=== PATIENT | female | born 1960 | race American Indian/Alaskan Native ===

== ENCOUNTER 2016-10-30 21:40 | Emergency (ER) | payer SELFPAY ==
[2016-10-30 22:22] VITALS: BP 160/108
--- NOTE | 2016-11-01 13:43 | ED Elopement Review ---
ED Pt Elopement review - Results review Lab results: Laboratory Tests 10/30/16 22:08 POC Glucose 95 - Call Back decision Pt Call Back Decision: No action required
== END 2016-10-30 22:15 | disposition left against medical advice (07) ==
LOC: ED 21:40
DX: R73.9 Hyperglycemia, unspecified (principal); Z53.21 Procedure and treatment not carried out due to patient leaving prior to being seen by health care provider
CPT/HCPCS: 82962

== ENCOUNTER 2017-03-27 20:07 | Emergency (ER) | payer MEDICARE ==
--- NOTE | 2017-03-27 22:27 | XRay Report ---
FINAL REPORT EXAM: XR HIP 2-3V RT HISTORY: RIGHT HIP PAIN TECHNIQUE: Right hip and AP pelvis PRIORS: None. FINDINGS: No fracture identified. No dislocation seen. Femoral head maintains a normal contour. Joint spaces within normal limits. Adjacent bony pelvis is unremarkable IMPRESSION: Negative hip series
--- NOTE | 2017-03-27 22:31 | XRay Report ---
FINAL REPORT EXAM: XR FOOT 2V RT HISTORY: RIGHT FOOT PAIN TECHNIQUE: 2 views right foot PRIORS: None. FINDINGS: No fracture or dislocation identified. Joint spaces are within normal limits. No radiopaque foreign body seen. No soft tissue abnormality identified. IMPRESSION: Negative foot series
--- NOTE | 2017-03-27 22:32 | XRay Report ---
FINAL REPORT EXAM: XR ANKLE 2V RT HISTORY: RIGHT ANKLE PAIN TECHNIQUE: 2 views right ankle PRIORS: None. FINDINGS: No fracture is identified. No dislocation seen. Ankle mortise is intact no evidence of joint space widening. No erosive or degenerative changes are identified. No evidence of joint effusion. IMPRESSION: Negative ankle series
[2017-03-27] MEDS ORDERED: MOTRIN PO ONE (23:46)
--- NOTE | 2017-03-27 23:50 | Emergency Department Report ---
ED Lower Extremity HPI - General Chief Complaint: Extremity Injury, Lower Stated Complaint: FOOT PAIN Time Seen by Provider: 03/27/17 23:36 Source: patient Mode of arrival: Wheelchair Limitations: No Limitations - History of Present Illness Initial Comments: This is a 56-year-old female nontoxic, well nourished in appearance, no acute signs of distress deficit ED complaining of right ankle, foot, and hip pain status post fall that occurred yesterday. Patient stated she was walking down the hill when she twisted her ankle and landed on her right sided buttock/hip region. Patient denies any head trauma. Denies loss of consciousness. Denies headache, chest pain, shortness of breath, numbness, tingling, fever, chills, nausea or vomiting. Patient states allergies to penicillin. Patient denies any decreased range of motion or abnormal gait. She stated she follows up with her primary care doctor for her hypertension and states she takes amlodipine and clonidine. MD Complaint: hip injury, ankle injury, foot injury -: Gradual, days(s) (1) Type of Injury: inversion Place: street/outdoors Severity: mild Severity scale (0 -10): 7 Improves With: nothing Worsens With: movement Associated Symptoms: swelling, ambulatory. denies: snap/pop sensation, numbness , tingling, unable to bear weight, able to partially bear weight - Related Data Home Medications Medication Instructions Recorded Confirmed Last Taken Clonidine HCl [Kapvay] 0.1 mg PO BID 04/26/13 08/06/14 04/26/13 Potassium Chloride [K-Dur] 10 meq PO QDAY 04/26/13 08/06/14 04/26/13 metFORMIN [Glucophage] 500 mg PO BID 04/26/13 08/06/14 04/26/13 Naproxen [Naprosyn TAB] 500 mg PO BID PRN 07/10/13 08/06/14 Unknown Previous Rx's Medication Instructions Recorded Last Taken Type Cyclobenzaprine [Flexeril 10 MG 5 mg PO TID PRN #30 tablet 04/27/13 Unknown Rx TAB] Citalopram [Celexa] 40 mg PO QDAY #30 tablet 07/15/13 Unknown Rx Doxepin [SINEquan] 25 mg PO QHS #30 capsule 07/15/13 Unknown Rx Triamter/Hctz 75-50 mg [Maxzide 1 tab PO QDAY #30 tablet 08/07/14 Unknown Rx 75-50 mg] Ibuprofen [Motrin 600 MG tab] 600 mg PO Q8H PRN #30 tablet 03/27/17 Unknown Rx Allergies Allergy/AdvReac Type Severity Reaction Status Date / Time Penicillins Allergy Swelling Verified 04/26/13 23:26 ED Review of Systems ROS: Stated complaint: FOOT PAIN Other details as noted in HPI Constitutional: denies: chills, fever Eyes: denies: eye pain, eye discharge, vision change ENT: denies: ear pain, throat pain Respiratory: denies: cough, shortness of breath, wheezing Cardiovascular: denies: chest pain, palpitations Endocrine: no symptoms reported Gastrointestinal: denies: abdominal pain, nausea, diarrhea Genitourinary: denies: urgency, dysuria, discharge Musculoskeletal: denies: back pain, joint swelling, arthralgia Skin: denies: rash, lesions Neurological: denies: headache, weakness, paresthesias Psychiatric: denies: anxiety, depression Hematological/Lymphatic: denies: easy bleeding, easy bruising ED Past Medical Hx - Past Medical History Previous Medical History?: Yes Hx Hypertension: Yes Hx CVA: Yes (2011 at [place]) Hx Congestive Heart Failure: No Hx Diabetes: Yes Hx Psychiatric Treatment: Yes (Depression) Hx Asthma: Yes Hx COPD: No Additional medical history: LEFT SIDE PARALYSIS, NEUROPATHY, HERNIATED DEGENERATIVE DISC DZ - Surgical History Past Surgical History?: Yes Additional Surgical History: HYSTERECTOMY, LAP BAND, NONMALIGNANT MASS REMOVED FROM FOREHEAD. Patient had a gastric prolapse that was repaired. - Social History Smoking Status: Never Smoker Substance Use Type: None - Medications Home Medications: Home Medications Medication Instructions Recorded Confirmed Last Taken Type Clonidine HCl [Kapvay] 0.1 mg PO BID 04/26/13 08/06/14 04/26/13 History Potassium Chloride [K-Dur] 10 meq PO QDAY 04/26/13 08/06/14 04/26/13 History metFORMIN [Glucophage] 500 mg PO BID 04/26/13 08/06/14 04/26/13 History Cyclobenzaprine [Flexeril 10 MG 5 mg PO TID PRN #30 tablet 04/27/13 08/06/14 Unknown Rx TAB] Naproxen [Naprosyn TAB] 500 mg PO BID PRN 07/10/13 08/06/14 Unknown History Citalopram [Celexa] 40 mg PO QDAY #30 tablet 07/15/13 08/06/14 Unknown Rx Doxepin [SINEquan] 25 mg PO QHS #30 capsule 07/15/13 08/06/14 Unknown Rx Triamter/Hctz 75-50 mg [Maxzide 1 tab PO QDAY #30 tablet 08/07/14 Unknown Rx 75-50 mg] Ibuprofen [Motrin 600 MG tab] 600 mg PO Q8H PRN #30 tablet 03/27/17 Unknown Rx ED Physical Exam - General Limitations: No Limitations General appearance: alert, in no apparent distress - Head Head exam: Present: atraumatic, normocephalic, normal inspection - Eye Eye exam: Present: normal appearance, PERRL, EOMI. Absent: scleral icterus, conjunctival injection, nystagmus, periorbital swelling, periorbital tenderness Pupils: Present: normal accommodation - ENT ENT exam: Present: normal exam, normal orophraynx, mucous membranes moist, TM's normal bilaterally, normal external ear exam - Neck Neck exam: Present: normal inspection, full ROM. Absent: tenderness, meningismus, lymphadenopathy, thyromegaly - Respiratory Respiratory exam: Present: normal lung sounds bilaterally. Absent: respiratory distress, wheezes, rales, rhonchi, stridor, chest wall tenderness, accessory muscle use, decreased breath sounds, prolonged expiratory - Cardiovascular Cardiovascular Exam: Present: regular rate, normal rhythm, normal heart sounds. Absent: bradycardia, tachycardia, irregular rhythm, systolic murmur, diastolic murmur, rubs, gallop - GI/Abdominal GI/Abdominal exam: Present: soft, normal bowel sounds. Absent: distended, tenderness, guarding, rebound, rigid, diminished bowel sounds - Rectal Rectal exam: Present: deferred - Extremities Exam Extremities exam: Present: normal inspection, full ROM, normal capillary refill. Absent: tenderness, pedal edema, joint swelling, calf tenderness - Expanded Lower Extremity Exam Right Hip exam: Present: normal inspection, full ROM, external rotation, internal rotation, pelvic stability. Absent: tenderness, swelling, abrasion, laceration , ecchymosis, deformity, crepidus, dislocation, erythema, shortening Upper Leg exam: Present: normal inspection, full ROM. Absent: tenderness, swelling, abrasion, laceration, ecchymosis, deformity, crepidus, dislocation, erythema Knee exam: Present: normal inspection, full ROM, full knee extension. Absent: tenderness, swelling, abrasion, laceration, ecchymosis, deformity, crepidus, dislocation, erythema, effusion, pain w/ pronation/supination, posterior draw sign, pain/laxity with valgus, pain/laxity with varus Lower Leg exam: Present: normal inspection, full ROM. Absent: tenderness, swelling, abrasion, laceration, ecchymosis, deformity, crepidus, dislocation, erythema, palpable cord, German's sign Ankle exam: Present: normal inspection, full ROM. Absent: tenderness, swelling , abrasion, laceration, ecchymosis, deformity, crepidus, dislocation, erythema, anterior draw sign Foot/Toe exam: Present: normal inspection, full ROM, swelling (ankle region). Absent: tenderness, abrasion, laceration, ecchymosis, deformity, crepidus, dislocation, erythema, amputation, puncture wound, foreign body, calcaneal tenderness, tenderness at base of 5th metatarsal, nail avulsion, subungual hematoma Neuro vascular tendon exam: Present: no vascular compromise. Absent: pulse deficit, abnormal cap refill, motor deficit, sensory deficit, tendon deficit, extremity cold to touch, pallor, abnormal 2-point discrimination, decreased fine /light touch, foot drop, peroneal nerve deficit, significant pain with passive ROM of distal joint Gait: Positive: observed and normal 1 - Swelling - Back Exam Back exam: Present: normal inspection, full ROM. Absent: tenderness, CVA tenderness (R), CVA tenderness (L), muscle spasm, paraspinal tenderness, vertebral tenderness, rash noted - Neurological Exam Neurological exam: Present: alert, oriented X3, CN II-XII intact, normal gait, reflexes normal - Psychiatric Psychiatric exam: Present: normal affect, normal mood - Skin Skin exam: Present: warm, dry, intact, normal color. Absent: rash ED Course Vital Signs 03/27/17 20:45 Temperature 98.4 F Pulse Rate 84 Respiratory 22 Rate Blood Pressure 174/92 O2 Sat by Pulse 99 Oximetry - Reevaluation(s) Reevaluation #1: 03/27/17 23:50 Patient speaking in full sentences but no signs of distress. ED Lower Extremity MDM - Medical Decision Making 56-year-old female that presents with left ankle sprain and right hip pain status post fall. Patient was examined by myself. Patient is stable. X-ray obtained of the right foot, right ankle, right hip with negative findings of any abnormalities or fractures. Patient was notified of x-ray findings with no further question about the patient. Patient received ibuprofen 800 mg by mouth in the ED as well as discharge. Patient was referred to follow up with Dr. Jones or another orthopedic doctor in 3-5 days or symptoms such as numbness, tingling, or worsening symptoms return to emergency room as soon as possible. Patient received a Uziel wrap to the right ankle and received crutches at discharge. Educated how to use crutches by RN. Patient was also started to rest, elevate, ice affected extremities. At time time of discharge, the patient does not seem toxic or ill in appearance. No acute signs of distress noted. Patient agrees to discharge treatment plan of care. No further questions noted by the patient. Critical care attestation.: If time is entered above; I have spent that time in minutes in the direct care of this critically ill patient, excluding procedure time. ED Disposition Clinical Impression: Hip pain, right Ankle sprain Qualifiers: Encounter type: initial encounter Involved ligament of ankle: unspecified ligament Laterality: right Qualified Code(s): S93.401A - Sprain of unspecified ligament of right ankle, initial encounter Disposition: - TO HOME OR SELFCARE Is pt being admited?: No Does the pt Need Aspirin: No Condition: Stable Instructions: Arthralgia (ED), Ankle Sprain (ED), RICE Therapy (ED), Hip Sprain (ED), Ibuprofen (By mouth), Crutch Instructions (ED) Additional Instructions: follow up with Dr. Jones or another orthopedic doctor in 3-5 days or symptoms such as numbness, tingling, or worsening symptoms return to emergency room as soon as possible. Follow-up with your primary care doctor in 3-5 days for your hypertension and keep a log of your blood pressure due to elevated in the ED. Rest, elevate, ice extremity. Prescriptions: Ibuprofen [Motrin 600 MG tab] 600 mg PO Q8H PRN #30 tablet PRN Reason: Pain Referrals: PRIMARY CAREMD [Primary Care Provider] - 3-5 Days JULIETA CANTU MD [Staff Physician] - 3-5 Days [facility] [Outside] - 3-5 Days [facility] [Outside] - 3-5 Days NERIS JONES MD [Staff Physician] - 3-5 Days
[2017-03-28 01:50] VITALS: BP 174/96
== END 2017-03-28 01:50 | disposition home or self-care (01) ==
LOC: ED 20:07
DX: S93.401A Sprain of unspecified ligament of right ankle, initial encounter (principal); I10 Essential (primary) hypertension; E11.9 Type 2 diabetes mellitus without complications; J45.909 Unspecified asthma, uncomplicated; Z88.0 Allergy status to penicillin; Z86.73 Personal history of transient ischemic attack (TIA), and cerebral infarction without residual deficits; W19.XXXA Unspecified fall, initial encounter; Y93.01 Activity, walking, marching and hiking; Y92.828 Other wilderness area as the place of occurrence of the external cause; Y99.8 Other external cause status
CPT/HCPCS: 99284

== ENCOUNTER 2018-02-09 00:35 | Emergency (ER) | payer MEDICARE ==
[2018-02-09 01:34] LABS: Basophils # (Auto) 0.1 K/mm3 (0.0-0.1); Basophils % (Auto) 0.7 % (0.0-1.8); Eosinophils # (Auto) 0.1 K/mm3 (0.0-0.4); Eosinophils % (Auto) 1.9 % (0.0-4.3); Hematocrit 41.7 % (30.3-42.9); Hemoglobin 14.2 gm/dl (10.1-14.3); Lymphocytes # (Auto) 2.6 K/mm3 (1.2-5.4); Lymphocytes % (Auto) 37.8 % (13.4-35.0); Mean Corpuscular HGB Conc 34 % (30-34); Mean Corpuscular Hemoglobin 30 pg (28-32); Mean Corpuscular Volume 87 fl (79-97); Monocytes # (Auto) 0.4 K/mm3 (0.0-0.8); Monocytes % (Auto) 6.4 % (0.0-7.3); Platelet Count 255 K/mm3 (140-440); Red Blood Count 4.78 M/mm3 (3.65-5.03)
[2018-02-09 01:50] LABS: BUN/Creatinine Ratio 16; Blood Urea Nitrogen 11 mg/dL (7-17); Calcium 9.2 mg/dL (8.4-10.2); Hemolysis Index 29
[2018-02-09 02:49] LABS: Bilirubin,Urine NEG (Negative); Blood,Urine NEG (Negative); Color,Urine Yellow (Yellow); Mucus,Urine FEW /HPF; Protein,Urine <15 mg/dL mg/dL (Negative); RBC,Urine < 1.0 /HPF (0.0-6.0); Urobilinogen,Urine < 2.0 mg/dL (<2.0); WBC,Urine < 1.0 /HPF (0.0-6.0)
[2018-02-09] MEDS ORDERED: HumuLIN R IV ONE (04:03)
[2018-02-09] MEDS ORDERED: NACL 0.9% 1000 ML 1,000 ML IV ONE (04:03)
--- NOTE | 2018-02-09 04:05 | Emergency Department Report ---
ED General Adult HPI - General Chief complaint: Hyperglycemia Stated complaint: HIGH BLOOD SUGAR Time Seen by Provider: 02/09/18 03:51 Source: patient, RN notes reviewed Mode of arrival: Ambulatory Limitations: No Limitations - History of Present Illness Initial comments: This is a 57-year-old female who is unknown to this provider previously, who presents to the ER with a complaint of hyperglycemia and palpitations. She ran out of her glipizide recently. She has no pain. She admits to some dietary indiscretions. She endorses malaise and fatigue. She denies irritative, obstructive urinary symptoms. Her symptoms are constant, do not have exacerbating or relieving factors that she is aware. They do not radiate anywhere. -: Gradual Consistency: constant Improves with: none Worsens with: none Associated Symptoms: malaise, weakness. denies: confusion, chest pain, cough, diaphoresis, fever/chills, loss of appetite, nausea/vomiting, rash, seizure, shortness of breath, syncope - Related Data Home Medications Medication Instructions Recorded Confirmed Last Taken Clonidine HCl [Kapvay] 0.1 mg PO BID 04/26/13 08/06/14 04/26/13 Potassium Chloride [K-Dur] 10 meq PO QDAY 04/26/13 08/06/14 04/26/13 metFORMIN [Glucophage] 500 mg PO BID 04/26/13 08/06/14 04/26/13 Naproxen [Naprosyn TAB] 500 mg PO BID PRN 07/10/13 08/06/14 Unknown Previous Rx's Medication Instructions Recorded Last Taken Type Cyclobenzaprine [Flexeril 10 MG 5 mg PO TID PRN #30 tablet 04/27/13 Unknown Rx TAB] Citalopram [Celexa] 40 mg PO QDAY #30 tablet 07/15/13 Unknown Rx Doxepin [SINEquan] 25 mg PO QHS #30 capsule 07/15/13 Unknown Rx Triamter/Hctz 75-50 mg (Nf) 1 tab PO QDAY #30 tablet 08/07/14 Unknown Rx [Maxzide 75-50 mg] Ibuprofen [Motrin 600 MG tab] 600 mg PO Q8H PRN #30 tablet 03/27/17 Unknown Rx glipiZIDE [Glipizide] 10 mg PO BID #60 tablet 02/09/18 Unknown Rx Allergies Allergy/AdvReac Type Severity Reaction Status Date / Time Penicillins Allergy Swelling Verified 02/09/18 01:03 ED Review of Systems ROS: Stated complaint: HIGH BLOOD SUGAR Other details as noted in HPI Constitutional: malaise. denies: fever Eyes: denies: vision change ENT: denies: epistaxis Respiratory: denies: cough Cardiovascular: palpitations. denies: chest pain Gastrointestinal: abdominal pain Genitourinary: denies: dysuria Musculoskeletal: arthralgia Skin: denies: lesions Neurological: weakness Psychiatric: anxiety ED Past Medical Hx - Past Medical History Hx Hypertension: Yes Hx CVA: Yes (2011 at [place]) Hx Congestive Heart Failure: No Hx Diabetes: Yes Hx Psychiatric Treatment: Yes (Depression) Hx Asthma: Yes Hx COPD: No Additional medical history: LEFT SIDE PARALYSIS, NEUROPATHY, HERNIATED DEGENERATIVE DISC DZ - Surgical History Additional Surgical History: HYSTERECTOMY, LAP BAND, NONMALIGNANT MASS REMOVED FROM FOREHEAD. Patient had a gastric prolapse that was repaired. - Social History Smoking Status: Never Smoker Substance Use Type: None - Medications Home Medications: Home Medications Medication Instructions Recorded Confirmed Last Taken Type Clonidine HCl [Kapvay] 0.1 mg PO BID 04/26/13 08/06/14 04/26/13 History Potassium Chloride [K-Dur] 10 meq PO QDAY 04/26/13 08/06/14 04/26/13 History metFORMIN [Glucophage] 500 mg PO BID 04/26/13 08/06/14 04/26/13 History Cyclobenzaprine [Flexeril 10 MG 5 mg PO TID PRN #30 tablet 04/27/13 08/06/14 Unknown Rx TAB] Naproxen [Naprosyn TAB] 500 mg PO BID PRN 07/10/13 08/06/14 Unknown History Citalopram [Celexa] 40 mg PO QDAY #30 tablet 07/15/13 08/06/14 Unknown Rx Doxepin [SINEquan] 25 mg PO QHS #30 capsule 07/15/13 08/06/14 Unknown Rx Triamter/Hctz 75-50 mg (Nf) 1 tab PO QDAY #30 tablet 08/07/14 Unknown Rx [Maxzide 75-50 mg] Ibuprofen [Motrin 600 MG tab] 600 mg PO Q8H PRN #30 tablet 03/27/17 Unknown Rx glipiZIDE [Glipizide] 10 mg PO BID #60 tablet 02/09/18 Unknown Rx ED Physical Exam - General Limitations: No Limitations General appearance: alert, in no apparent distress - Head Head exam: Present: atraumatic, normocephalic - Eye Eye exam: Present: normal appearance, EOMI. Absent: nystagmus - ENT ENT exam: Present: normal exam, normal orophraynx, mucous membranes moist, normal external ear exam - Neck Neck exam: Present: normal inspection, full ROM - Respiratory Respiratory exam: Present: normal lung sounds bilaterally. Absent: respiratory distress - Cardiovascular Cardiovascular Exam: Present: regular rate, normal rhythm, normal heart sounds. Absent: systolic murmur, diastolic murmur, rubs, gallop - GI/Abdominal GI/Abdominal exam: Present: soft, normal bowel sounds. Absent: distended, tenderness, guarding, rebound, rigid, pulsatile mass - Extremities Exam Extremities exam: Present: normal inspection, full ROM, normal capillary refill , other (2+ pulses noted in the bilateral upper, lower extremities. Compartments soft. No long bony tenderness. The pelvis is stable.). Absent: pedal edema, joint swelling, calf tenderness - Back Exam Back exam: Present: normal inspection, full ROM. Absent: tenderness, CVA tenderness (R), paraspinal tenderness, vertebral tenderness - Neurological Exam Neurological exam: Present: alert, oriented X3, CN II-XII intact, normal gait, other (Extraocular movements intact. Tongue midline. No facial droop. Facial sensation intact to light touch in the V1, V2, V3 distribution bilaterally. 5 and 5 strength in 4 extremities.. Sensation is intact to light touch in 4 extremities.). Absent: motor sensory deficit - Psychiatric Psychiatric exam: Present: normal affect, normal mood - Skin Skin exam: Present: warm, dry, intact, normal color. Absent: rash ED Course Vital Signs 02/09/18 02/09/18 02/09/18 00:32 01:03 05:12 Temperature 98.3 F 98.3 F 98.4 F Pulse Rate 109 H 107 H 90 Respiratory 18 18 20 Rate Blood Pressure 136/81 136/81 Blood Pressure 133/77 [Right] O2 Sat by Pulse 92 99 97 Oximetry 02/09/18 05:18 Temperature Pulse Rate Respiratory 20 Rate Blood Pressure Blood Pressure [Right] O2 Sat by Pulse 97 Oximetry - Reevaluation(s) Reevaluation #1: 02/09/18 05:35 Differential diagnosis, including but not limited to: Hyperglycemia, medication refill, diabetic ketoacidosis Assessment and plan: 57-year-old female who presents with a complaint of hyperglycemia likely secondary to medication noncompliance and dietary indiscretions. Laboratory studies not consistent with diabetic ketoacidosis. Her glipizide will be refilled. She will be given subcutaneous insulin. She can follow up with outpatient primary care doctor. ED Medical Decision Making - Lab Data Result diagrams: 02/09/18 01:18 02/09/18 01:18 Vital Signs 02/09/18 02/09/18 02/09/18 00:32 01:03 05:12 Temperature 98.3 F 98.3 F 98.4 F Pulse Rate 109 H 107 H 90 Respiratory 18 18 20 Rate Blood Pressure 136/81 136/81 Blood Pressure 133/77 [Right] O2 Sat by Pulse 92 99 97 Oximetry 02/09/18 05:18 Temperature Pulse Rate Respiratory 20 Rate Blood Pressure Blood Pressure [Right] O2 Sat by Pulse 97 Oximetry Lab Results 02/09/18 02/09/18 02/09/18 Range/Units 01:13 01:17 01:18 WBC 6.9 (4.5-11.0) K/mm3 RBC 4.78 (3.65-5.03) M/mm3 Hgb 14.2 (10.1-14.3) gm/dl Hct 41.7 (30.3-42.9) % MCV 87 (79-97) fl MCH 30 (28-32) pg MCHC 34 (30-34) % RDW 14.0 (13.2-15.2) % Plt Count 255 (140-440) K/mm3 Lymph % (Auto) 37.8 H (13.4-35.0) % [place] % (Auto) 6.4 (0.0-7.3) % Eos % (Auto) 1.9 (0.0-4.3) % Baso % (Auto) 0.7 (0.0-1.8) % Lymph # 2.6 (1.2-5.4) K/mm3 [place] # 0.4 (0.0-0.8) K/mm3 Eos # 0.1 (0.0-0.4) K/mm3 Baso # 0.1 (0.0-0.1) K/mm3 Seg Neutrophils % 53.2 (40.0-70.0) % Seg Neutrophils # 3.7 (1.8-7.7) K/mm3 VBG pH (7.320-7.420) Sodium (137-145) mmol/L Potassium (3.6-5.0) mmol/L Chloride (98-107) mmol/L Carbon Dioxide (22-30) mmol/L Anion Gap mmol/L BUN (7-17) mg/dL Creatinine (0.7-1.2) mg/dL Estimated GFR ml/min BUN/Creatinine Ratio % Glucose (65-100) mg/dL POC Glucose 260 H 325 H (70-105) Calcium (8.4-10.2) mg/dL Urine Color (Yellow) Urine Turbidity (Clear) Urine pH (5.0-7.0) Ur Specific [place] (1.003-1.030) Urine Protein (Negative) mg/dL Urine Glucose (UA) (Negative) mg/dL Urine Ketones (Negative) mg/dL Urine Blood (Negative) Urine Nitrite (Negative) Urine Bilirubin (Negative) Urine Urobilinogen (<2.0) mg/dL Ur Leukocyte Esterase (Negative) Urine WBC (Auto) (0.0-6.0) /HPF Urine RBC (Auto) (0.0-6.0) /HPF U Epithel Cells (Auto) (0-13.0) /HPF Urine Mucus /HPF 02/09/18 02/09/18 02/09/18 Range/Units 01:18 01:18 02:28 WBC (4.5-11.0) K/mm3 RBC (3.65-5.03) M/mm3 Hgb (10.1-14.3) gm/dl Hct (30.3-42.9) % MCV (79-97) fl MCH (28-32) pg MCHC (30-34) % RDW (13.2-15.2) % Plt Count (140-440) K/mm3 Lymph % (Auto) (13.4-35.0) % [place] % (Auto) (0.0-7.3) % Eos % (Auto) (0.0-4.3) % Baso % (Auto) (0.0-1.8) % Lymph # (1.2-5.4) K/mm3 [place] # (0.0-0.8) K/mm3 Eos # (0.0-0.4) K/mm3 Baso # (0.0-0.1) K/mm3 Seg Neutrophils % (40.0-70.0) % Seg Neutrophils # (1.8-7.7) K/mm3 VBG pH 7.422 H (7.320-7.420) Sodium 139 (137-145) mmol/L Potassium 3.6 (3.6-5.0) mmol/L Chloride 97.9 L (98-107) mmol/L Carbon Dioxide 26 (22-30) mmol/L Anion Gap 19 mmol/L BUN 11 (7-17) mg/dL Creatinine 0.7 (0.7-1.2) mg/dL Estimated GFR > 60 ml/min BUN/Creatinine Ratio 16 % Glucose 364 H (65-100) mg/dL POC Glucose (70-105) Calcium 9.2 (8.4-10.2) mg/dL Urine Color Yellow (Yellow) Urine Turbidity Clear (Clear) Urine pH 5.0 (5.0-7.0) Ur Specific [place] 1.008 (1.003-1.030) Urine Protein <15 mg/dl (Negative) mg/dL Urine Glucose (UA) 150 (Negative) mg/dL Urine Ketones Neg (Negative) mg/dL Urine Blood Neg (Negative) Urine Nitrite Neg (Negative) Urine Bilirubin Neg (Negative) Urine Urobilinogen < 2.0 (<2.0) mg/dL Ur Leukocyte Esterase Neg (Negative) Urine WBC (Auto) < 1.0 (0.0-6.0) /HPF Urine RBC (Auto) < 1.0 (0.0-6.0) /HPF U Epithel Cells (Auto) 1.0 (0-13.0) /HPF Urine Mucus Few /HPF - EKG Data -: EKG Interpreted by Pa EKG shows normal: sinus rhythm Rate: normal - EKG Data Interpretation: no acute changes 02/09/18 05:34 Sinus, 80 beats per minute, borderline left axis deviation, QTC prolonged, nonspecific ST abnormality, not a STEMI, unchanged from prior EKG from July 2013 Critical care attestation.: If time is entered above; I have spent that time in minutes in the direct care of this critically ill patient, excluding procedure time. ED Disposition Clinical Impression: Hyperglycemia Disposition: DC-01 TO HOME OR SELFCARE Is pt being admited?: No Does the pt Need Aspirin: No Condition: Stable Instructions: Diabetic Hyperglycemia (ED) Additional Instructions: Take the medication as directed. Make certain to adhere to a diabetic diet as recommended by the [employer]. Follow up with her primary care doctor within the next month. Return to the ER right away with new pain, worsened pain, migration of pain, fevers, chills, lethargy, irritability, projectile vomiting, change in mental status, confusion, inability to tolerate liquid feeds. Referrals: PRIMARY MD SAUNDRA [Primary Care Provider] - 3-5 Days PRICILLA HERNANDEZ MD [Staff Physician] - 3-5 Days
[2018-02-09] MEDS ORDERED: HumuLIN R SUB-Q ONE ×2 (05:40→06:05)
[2018-02-09 08:12] VITALS: BP 130/76
== END 2018-02-09 08:13 | disposition home or self-care (01) ==
LOC: ED 00:35
DX: E11.65 Type 2 diabetes mellitus with hyperglycemia (principal); E11.40 Type 2 diabetes mellitus with diabetic neuropathy, unspecified; I10 Essential (primary) hypertension; J45.909 Unspecified asthma, uncomplicated; Z90.710 Acquired absence of both cervix and uterus; Z88.0 Allergy status to penicillin; Z86.73 Personal history of transient ischemic attack (TIA), and cerebral infarction without residual deficits
CPT/HCPCS: 36415; 80048; 81001; 82805; 82962; 85025; 93005; 93010; 96372; 99284; J1815